=== PATIENT | male | born 1945 | race Caucasian/White ===

== ENCOUNTER → 2017-06-11 | Day surgery (SDC) | payer MEDICARE ==
[~2017-06-11] VITALS: Ht 177.8 cm; Wt 97.5 kg
[~2017-06-11] MED LIST: ASPI-973 PO; IBUP400T22 PO; LOVA10TA PO; METH500T PO; OMEP20CA11 PO; Sodium Chloride LOK Flush 10 mL Syringe IV PRN; fentaNYL-PF 50 mCg/mL 2 mL Inj IVPUSH PRN
[2017-06-11 11:27] VITALS: BP 150/93; PULSE 64; RESP 16; O2SAT 98
[2017-06-11] MEDS: 0.9% Sodium Chloride 1,000 ML IV PRN ×2 (11:46→11:56)
[2017-06-11 12:08] VITALS: BP 133/73; PULSE 62; RESP 16; O2SAT 99
[2017-06-11 12:18] VITALS: BP 124/70; PULSE 63; RESP 16; O2SAT 97
[2017-06-11 12:28] VITALS: BP 126/73; PULSE 60; RESP 16; O2SAT 97
--- NOTE | 2017-06-11 12:42 | ENDO ---
[address] [address] ENDOSCOPY PROCEDURE PATIENT: OLGA SOTO : 1945 MR#: [id number] ADMIT: 06/11/2017 JOB ID: [id number] PRIMARY CARE PHYSICIAN: Michael Cnuningham MD PROCEDURE: Colonoscopy with cold snare polypectomy. INDICATIONS: A 72-year-old male with a personal history of colon polyps returning for surveillance. EQUIPMENT: PCF H 180 AL. SEDATION: Versed 6 mg, 125 mcg fentanyl. COMPLICATIONS: None identified. BOWEL PREPARATION: Fair, adequate exam. PROCEDURE INFORMATION: After the risks and benefits were explained, written and verbal informed consent was obtained. The patient was brought into the endoscopy suite and placed in the left lateral decubitus position. Sedation was achieved as above. Digital rectal examination accomplished. Mild internal hemorrhoids noted. The scope was introduced into the rectum and advanced under direct visualization to the level of the cecum, as identified by the appendiceal orifice and ileocecal valve. The scope was slowly withdrawn to carefully examine the mucosa for any defects or lesions. Retroflexed views were accomplished in the rectum. The colon was decompressed and the scope removed from the patient, who tolerated the procedure well. FINDINGS: Extensive diverticulosis was seen all through the left colon in the transverse. In the proximal descending there was a diminutive, perhaps 4-5 mm, polyp removed with cold snare. No other significant pathology was appreciated throughout including retroflexed views from within the rectum. ENDOSCOPIC DIAGNOSES: 1. Diverticulosis. 2. Colon polyp. 3. Internal hemorrhoids. RECOMMENDATIONS: 1. Await histopathology. 2. Repeat colonoscopy five years. CC: Michael Cunningham MD
--- NOTE | 2017-06-12 15:53 | PATH ---
SURGICAL PATHOLOGY Attending Physician:Cesar Oneal CASE STATUS: Signed Out PATIENT NAME: OLGA SOTO PID: [id number] : 1945 DATE COLLECTED:06/11/2017 21:54 SPECIMEN: Colon, Polyp CLINICAL HISTORY: 1). DESCENDING COLON POLYP FINAL DIAGNOSIS: Descending Colon, Polyp, Biopsy: Tubular adenoma; negative for high-grade dysplasia. ICD10: K63.5 GROSS DESCRIPTION: The specimen is received in one formalin filled container labeled with the patient's name, sublabeled "descending colon polyp" and consists of a 0.2 x 0.2 x 0.2 CM portion of tissue which is entirely submitted in one cassette. 06/11/2017DC ICD-9 CODES: CPT CODES: 1: 43284 Electronically Signed Out Darleen To MD [facility] Pathology [facility] [address] [facility], [place] [address] Technical component performed at [facility], [address] [place] [address] Ave[address], [address]
== END | disposition home or self-care (01) ==
LOC: END 00:28
PROVIDERS: ATTEND Internal Medicine Gastroenterology
DX: Z12.11 Encounter for screening for malignant neoplasm of colon (principal); Z86.010 Personal history of colon polyps; D12.4 Benign neoplasm of descending colon; K57.30 Diverticulosis of large intestine without perforation or abscess without bleeding; K64.8 Other hemorrhoids; Z79.82 Long term (current) use of aspirin
CPT/HCPCS: 45385; 88305; 99153; G0500; J2250; J3010; J7030